=== PATIENT | male | born 2000 | race Caucasian/White ===

== ENCOUNTER 2021-10-29 15:28 | Emergency (ER) | payer SELFPAY ==
[2021-10-29 15:43] VITALS: BP 110/71; TEMP 97; BMI 26.6
[2021-10-29] MEDS ORDERED: SODIUM CHLORIDE 0.9% 500 ML INFUS.BAG IV ONE (17:23)
[2021-10-29] MEDS ORDERED: morphine CARPU-JECT 4 MG/1 ML DISP.SYRIN IVPUSH ONE (17:23)
[2021-10-29] MEDS ORDERED: DIPHTH,PERTUSS(ACELL),TET 0.5 ML DISP.SYRIN IM ONE ×3 (17:29→17:47)
[2021-10-29] MEDS ORDERED: morphine SULFATE 4 MG/ML VIAL ONE (17:31)
[2021-10-29 19:04] LABS: BASO % 0.4 % (0-2.0); HEMATOCRIT 42.9 % (35.4-49); HEMOGLOBIN 14.3 GM/dL (11.7-16.9); LYMPH % 14.7 % (8-40); MCH 29.6 pg (25.7-33.7); MCHC 33.2 g/dl (32.0-35.9); MEAN CELL VOLUME 89.2 fl (80-96); MEAN PLT VOLUME 8.7 fl (7.5-11.1); MONO % 5.6 % (3.8-10.2); NEUT % 77.3 % (42.8-82.8); PLATELET COUNT 287 10^3/uL (134-434); RBC 4.81 M/mm3 (4.00-5.60); RDW 16.1 % (11.9-15.9); WHITE BLOOD COUNT 17.7 K/mm3 (4.0-10.0)
[2021-10-29 19:14] LABS: INR 1.09 (0.83-1.09); PROTHROMBIN TIME (PATIENT) 12.5 SEC (9.7-13.0)
[2021-10-29 19:17] LABS: ACTIVATED PTT 30.1 SECONDS (25.2-36.5)
[2021-10-29 19:30] LABS: ALBUMIN 3.9 g/dl (3.4-5.0); BLOOD UREA NITROGEN 15.1 mg/dL (7-18); CALCIUM 9.2 mg/dL (8.5-10.1)
[2021-10-29 19:33] LABS: CREATININE 0.9 mg/dL (0.55-1.3)
[2021-10-29 19:35] LABS: BILIRUBIN,TOTAL 0.5 mg/dL (0.2-1); TOT PROT 7.8 g/dl (6.4-8.2)
[2021-10-29] MEDS ORDERED: BACITRACIN 15 GM TUBE TOPICAL OINTMENT ONE (19:59)
[2021-10-29] MEDS ORDERED: CEPHALEXIN MONOHYDRATE 500 MG CAPSULE (UD) PO ONE (20:08)
[2021-10-29] MEDS ORDERED: CEPHALEXIN MONOHYDRATE 500 MG CAPSULE (UD) ONE (20:18)
[2021-10-29 21:12] VITALS: PULSE 86
== END 2021-10-29 21:12 | disposition home or self-care (01) ==
LOC: JER 15:28
DX: V01 Pedestrian injured in collision with pedal cycle (principal); Y92.9 Unspecified place or not applicable
CPT/HCPCS: 36415; 70450-TC; 71260-TC; 72125-TC; 74177-TC; 80053; 85025; 85610; 85730; 86850; 86900; 86901; 90715; 99285-25; Q9967

== ENCOUNTER 2023-04-25 18:43 | Emergency (ER) | payer SELFPAY ==
[2023-04-25 19:08] VITALS: BP 123/75; PULSE 92; RESP 18; TEMP 98; BMI 27.3
[2023-04-25] MEDS ORDERED: SODIUM CHLORIDE 0.9% 500 ML INFUS.BAG IV ONE (19:49)
[2023-04-25] MEDS ORDERED: ACETAMINOPHEN 1000 MG/100 ML BAG IVPB ONE (19:49)
[2023-04-25] MEDS ORDERED: ALBUTEROL SO4 HFA INHALER IH ONE ×2 (19:50→20:02)
[2023-04-25] MEDS ORDERED: ACETAMINOPHEN INJECTION 100 ML IVPB ONE (20:02)
[2023-04-25 21:07] LABS: BASO % 0.3 % (0-2.0); EOS % 1.4 % (0-4.5); HEMATOCRIT 39.4 % (35.4-49); HEMOGLOBIN 12.9 GM/dL (11.7-16.9); MCH 29.2 pg (25.7-33.7); MCHC 32.8 g/dl (32.0-35.9); MEAN CELL VOLUME 89.1 fl (80-96); MEAN PLT VOLUME 8.5 fl (7.5-11.1); MONO % 5.7 % (3.8-10.2); NEUT % 76.6 % (42.8-82.8); PLATELET COUNT 326 10^3/uL (134-434); RBC 4.43 M/mm3 (4.00-5.60); RDW 15.3 % (11.9-15.9); WHITE BLOOD COUNT 15.1 K/mm3 (4.0-10.0)
[2023-04-25 21:17] LABS: POTASSIUM 3.8 mmol/L (3.5-5.1)
[2023-04-25 21:19] LABS: ALBUMIN 3.6 g/dl (3.4-5.0); BLOOD UREA NITROGEN 9.7 mg/dL (7-18); MAGNESIUM 2.4 mg/dL (1.8-2.4)
[2023-04-25 21:24] LABS: BILIRUBIN,TOTAL 0.3 mg/dL (0.2-1); TOT PROT 7.5 g/dl (6.4-8.2)
== END 2023-04-25 22:37 | disposition home or self-care (01) ==
LOC: JER 18:43
PROC: 3E0F7GC Introduction of Other Therapeutic Substance into Respiratory Tract, Via Natural or Artificial Opening (ICD-10-PCS; principal; 2023-04-25)
DX: R55 Syncope and collapse (principal); S09.90XA Unspecified injury of head, initial encounter; W01.198A Fall on same level from slipping, tripping and stumbling with subsequent striking against other object, initial encounter; Z20.822 Contact with and (suspected) exposure to COVID-19
CPT/HCPCS: 0241U-QW; 36415; 70450-TC; 80053; 83735; 84484; 85025; 87651; 93005; 93010; 99285-25

== ENCOUNTER 2023-04-26 00:57 | Inpatient (IN) | payer SELFPAY ==
[2023-04-26 01:12] VITALS: BMI 28.0
[2023-04-26] MEDS ORDERED: levETIRAcetam 500 MG/5 ML INJECTION VIAL IVPB ONE ×2 (01:29→01:51)
[2023-04-26] MEDS ORDERED: ACETAMINOPHEN 1000 MG/100 ML BAG IVPB ONE (01:31)
[2023-04-26] MEDS ORDERED: METOCLOPRAMIDE HCL INJECTION 10 MG/2 ML VIAL IVPB ONE (01:31)
[2023-04-26] MEDS ORDERED: SODIUM CHLORIDE 0.9% 500 ML INFUS.BAG IV ONE (01:31)
[2023-04-26] MEDS ORDERED: ACETAMINOPHEN INJECTION 100 ML IVPB ONE (01:51)
[2023-04-26] MEDS ORDERED: METOCLOPRAMIDE HCL INJECTION 10 MG/2 ML VIAL ONE (01:51)
[2023-04-26 01:52] LABS: BASO % 0.5 % (0-2.0); EOS % 0.7 % (0-4.5); HEMOGLOBIN 13.3 GM/dL (11.7-16.9); LYMPH % 14.4 % (8-40); MCH 29.1 pg (25.7-33.7); MCHC 33.2 g/dl (32.0-35.9); MEAN CELL VOLUME 87.6 fl (80-96); MONO % 4.3 % (3.8-10.2); NEUT % 80.1 % (42.8-82.8); PLATELET COUNT 377 10^3/uL (134-434); RBC 4.56 M/mm3 (4.00-5.60); RDW 15.5 % (11.9-15.9); WHITE BLOOD COUNT 12.3 K/mm3 (4.0-10.0)
[2023-04-26 02:01] LABS: INR 1.14 (0.83-1.09); PROTHROMBIN TIME (PATIENT) 13.2 SEC (9.7-13.0)
[2023-04-26 02:03] LABS: ACTIVATED PTT 31.5 SECONDS (25.2-36.5)
[2023-04-26 02:19] LABS: CHLORIDE 108 mmol/L (98-107); POTASSIUM 3.7 mmol/L (3.5-5.1); SODIUM 139 mmol/L (136-145)
[2023-04-26 02:21] LABS: CALCIUM 9.4 mg/dL (8.5-10.1)
[2023-04-26 02:22] LABS: ALBUMIN 3.7 g/dl (3.4-5.0); ANION GAP 10 mmol/L (4-13); BLOOD UREA NITROGEN 8.2 mg/dL (7-18); CO2 21 mmol/L (21-32); GLUCOSE,RANDOM 123 mg/dL (74-106)
[2023-04-26 02:25] LABS: CREATININE 1.1 mg/dL (0.55-1.3); SGOT/AST 37 U/L (15-37); SGPT/ALT 36 U/L (13-61)
[2023-04-26] MEDS ORDERED: hydrOXYzine HCL 100 MG/2 ML VIAL IM ONE ×2 (02:26)
[2023-04-26 02:27] LABS: BILIRUBIN,TOTAL 0.4 mg/dL (0.2-1); TOT PROT 7.7 g/dl (6.4-8.2)
[2023-04-26 02:28] LABS: ALK PHOS 96 U/L (45-117)
[2023-04-26 02:30] LABS: LACTIC ACID 3.6 mmol/L (0.4-2.0)
[2023-04-26] MEDS ORDERED: hydrOXYzine HCL 50 MG/ML VIAL IM ONE (02:32)
[2023-04-26] MEDS ORDERED: ACYCLOVIR INJECTION 860 MG in DEXTROSE 5%-WATER - 100 ML IVPB SCH (04:15)
[2023-04-26] MEDS ORDERED: VANCOMYCIN/WATER 1250 MG 1,250 MG/250 ML BAG IVPB SCH ×4 (04:30→06:00)
[2023-04-26] MEDS ORDERED: LACTATED RINGERS SOLUTION 1,000 ML/1,000 ML INFUS.BAG IV SCH (04:30)
[2023-04-26] MEDS ORDERED: CEFTRIAXONE 2 GM-D5W BAG 2 GM/50 ML BAG IVPB SCH ×2 (05:02→10:00)
[2023-04-26] MEDS: DEXAMETHASONE SOD PHOSPHATE 10 MG/1 ML VIAL IVPUSH SCH ×3 (05:30→10:22)
[2023-04-26 07:40] VITALS: RESP 18
[2023-04-26] MEDS ORDERED: CEFTRIAXONE 2 GM in DEXTROSE 5%-WATER 100 ML IVPB SCH (07:54)
[2023-04-26 08:06] LABS: HEMATOCRIT 39.2 % (35.4-49); HEMOGLOBIN 12.7 GM/dL (11.7-16.9); MCH 29.4 pg (25.7-33.7); MCHC 32.5 g/dl (32.0-35.9); MEAN CELL VOLUME 90.3 fl (80-96); MEAN PLT VOLUME 8.2 fl (7.5-11.1); PLATELET COUNT 317 10^3/uL (134-434); RBC 4.34 M/mm3 (4.00-5.60); RDW 15.5 % (11.9-15.9); WHITE BLOOD COUNT 15.5 K/mm3 (4.0-10.0)
[2023-04-26 08:30] LABS: POTASSIUM 4.1 mmol/L (3.5-5.1)
[2023-04-26 08:33] LABS: CALCIUM 9.1 mg/dL (8.5-10.1)
[2023-04-26 08:34] LABS: ALBUMIN 3.4 g/dl (3.4-5.0); BLOOD UREA NITROGEN 8.9 mg/dL (7-18)
[2023-04-26 08:37] LABS: CREATININE 0.9 mg/dL (0.55-1.3)
[2023-04-26 08:38] LABS: BILIRUBIN,TOTAL 0.4 mg/dL (0.2-1)
[2023-04-26 08:39] LABS: TOT PROT 7.1 g/dl (6.4-8.2)
[2023-04-26 09:25] VITALS: BP 134/69; PULSE 83; TEMP 98.6
[2023-04-26] MEDS ORDERED: DEXAMETHASONE SOD PHOSPHATE 10 MG/1 ML VIAL ONE (09:26)
[2023-04-26] MEDS ORDERED: CEFTRIAXONE 2 GM/100 ML BAG IVPB ONE (09:26)
[2023-04-26] MEDS: ACYCLOVIR INJECTION 860 MG in DEXTROSE 5%-WATER - 100 ML IVPB SCH ×2 (09:28→10:22)
== END 2023-04-26 11:00 | disposition left against medical advice (07) | DRG 53 ==
LOC: JER 00:57 → JERBED 01:25
PROVIDERS: ADMIT Internal Medicine; ATTEND Internal Medicine
DX: R56.9 Unspecified convulsions (principal); R55 Syncope and collapse; M62.82 Rhabdomyolysis; F11.90 Opioid use, unspecified, uncomplicated; F12.90 Cannabis use, unspecified, uncomplicated; J45.909 Unspecified asthma, uncomplicated; R00.0 Tachycardia, unspecified; R51.9 Headache, unspecified; D72.829 Elevated white blood cell count, unspecified
CPT/HCPCS: 36415; 71045-TC-FY; 80053; 80307; 82550; 82553; 83605; 84443; 84484; 85025; 85027; 85610; 85730; 93005; 93010; 99285-25; J1100